=== PATIENT | female | born 1970 | race African-American/Black ===

== ENCOUNTER 2017-10-16 18:04 | Emergency (ER) | payer MEDICARE ==
[~2017-10-16] VITALS: Ht 162.6 cm; Wt 78.0 kg
[2017-10-16 18:09] VITALS: BP 130/58; PULSE 89; RESP 16; TEMP 98.8; O2SAT 100
[2017-10-16] MEDS ORDERED: NEUR100C PO (18:41)
[2017-10-16] MEDS ORDERED: NOVOINJ3 SQ (18:41)
[2017-10-16] MEDS ORDERED: PLAV75TA29 PO (18:41)
[2017-10-16] MEDS ORDERED: LEVEMIR SQ (18:41)
[2017-10-16] MEDS ORDERED: ASPI1TAB57 PO (18:41)
[2017-10-16] MEDS ORDERED: [UNRECOGNIZED DRUG - REMARK] (18:41)
--- NOTE | 2017-10-16 18:53 | PD ---
HPI Chief Complaint: Injury Time Seen by Provider: 18:31 Travel History International Travel<30 days: No Contact w/Intl Traveler<30days: No Traveled to known affect area: No History of Present Illness HPI 47-year-old female presents to the ED for evaluation of injury to her left hip. Per patient she accidentally had a trip and fall. 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 She is also a kidney transplant patient. She states that she landed on her left hip joint and also her left hand but she is not really concerned about anything else alert in the hip. She does have a big area of swelling. Per patient's abnormal 1:00. She has 92 morphine. She denies any urinary or bowel movement issues. She denies any head injury loss of consciousness. No neck pain or back pain. She states that she does take a blood thinner. No pain on the abdomen or chest. PFSH Past Medical History High Cholesterol: Yes Diabetes: Yes Patient Takes Glucophage: No Diminished Hearing: No Hypertension: Yes Medical other: Yes (neuropathy) Migraines: Yes Tetanus Vaccination: < 5 Years Influenza Vaccination: Yes ?: Not Past Surgical History Abdominal Surgery: Yes (bilat kidney transplant ) Cholecystectomy: Yes Hysterectomy: Yes (partial ) Other Surgery: Yes (bilat arms and chest ) Social History Alcohol Use: Yes (occassionally) Tobacco Use: No Substance Use: No Allergies-Medications (Allergen,Severity, Reaction): Coded Allergies: morphine (Verified Allergy, Unknown, 10/16/17) Reported Meds & Prescriptions Reported Meds & Active Scripts Active Reported Aspirin 81 (Aspirin) 81 Mg Tabdr 81 Mg PO DAILY Novolog Flexpen Inj (Insulin Aspart) 300 Unit/3 Ml Pen 2 Units SQ DIRECTED Levemir Inj (Insulin Detemir) 1,000 unit/ 10 ML Vial 35 Units SQ BID Do not mix with any other Insulin. Neurontin (Gabapentin) 100 Mg Cap 100 Mg PO TID Plavix (Clopidogrel Bisulfate) 75 Mg Tab 75 Mg PO DAILY [post transplant meds] Review of Systems Except as stated in HPI: all other systems reviewed are Neg Physical Exam Narrative GENERAL: SKIN: Warm and dry. Patient has multiple surgical scars from fistulous as well as previous surgeries. HEAD: Atraumatic. Normocephalic. EYES: Pupils equal and round. No scleral icterus. No injection or drainage. ENT: No nasal bleeding or discharge. Mucous membranes pink and moist. Tongue is midline. No uvula deviation. NECK: Trachea midline. No JVD. CARDIOVASCULAR: Regular rate and rhythm. No murmurs, S3, S4. RESPIRATORY: No accessory muscle use. Clear to auscultation. Breath sounds equal bilaterally. GASTROINTESTINAL: Abdomen soft, non-tender, nondistended. Hepatic and splenic margins not palpable. MUSCULOSKELETAL: Extremities without clubbing, cyanosis, or edema. No obvious deformities. Full range of motion of the upper and lower extremities bilaterally. 2+ pulses bilaterally. Patient able to move the hip completely. She has point tenderness to palpation on the lateral aspect of the hip around the area of the bursa. She does have swelling but no obvious bruising noted. Very tender to touch in this area. No lumbar, thoracic, cervical spine tenderness to palpation. Patient has below the knee amputation on the left leg. NEUROLOGICAL: Awake and alert. No obvious cranial nerve deficits. Motor grossly within normal limits. Five out of 5 muscle strength in the arms and legs. Normal speech. PSYCHIATRIC: Appropriate mood and affect; insight and judgment normal. Data Data Last Documented VS Vital Signs Date Time Temp Pulse Resp B/P (MAP) Pulse Ox O2 Delivery O2 Flow Rate FiO2 10/16/17 18:09 98.8 89 16 130/58 (82) 100 Orders Orders Femur (Ap & Lat/2vws) (10/16/17 ) Ct Temporal Bone W/O Iv Cont (10/16/17 ) MDM Medical Decision Making Medical Screen Exam Complete: Yes Emergency Medical Condition: Yes Medical Record Reviewed: Yes Interpretation(s) X-ray left hip show no sign of bony injury. Differential Diagnosis Fracture versus traumatic bursitis versus contusion versus hematoma Narrative Course 47-year-old female that presents to the ED for evaluation of left hip injury. Patient was properly examined and was found to have signs and symptoms concerning for bony injury. X-ray was done and was negative for acute bony injury. Patient does appear to have a traumatic bursitis. This time a recommend trial of pain medication. Ice or warm compresses. Because of her history of kidney disease I do not recommend NSAIDS. Patient was told to apply warm compresses. Follow with orthopedic doctor. See ED if worsening symptoms. Diagnosis Primary Impression: Traumatic bursitis Patient Instructions: General Instructions Additional Instructions: Take medications as prescribed. Follow-up with PCP. See ED for any worsening symptoms. Do not drink or drive while taking pain medication. Apply ice or heat as needed for pain Med/Other Pt SpecificInfo: Prescription(s) given Disposition: 01 DISCHARGE HOME Condition: Jerry Lopez Oct 16, 2017 18:53
[2017-10-16] MEDS ORDERED: HYDR-3516 PO (18:58)
--- NOTE | 2017-10-16 19:19 | RADRPT ---
EXAM DATE/TIME: 10/16/2017 18:54 [facility] COMPARISON: No previous studies available for comparison. INDICATIONS : Left femur pain post fall today MEDICAL HISTORY : None. SURGICAL HISTORY : None. ENCOUNTER: Initial ACUITY: 1 day PAIN SCORE: 5/10 LOCATION: Left entire femur FINDINGS: Two view examination of the left femur demonstrates no evidence of fracture or dislocation. Bony min eralization is normal. The soft tissue structures are intact. Vascular calcifications are seen. CONCLUSION: No acute disease. Scottie Murphy MD on October 16, 2017 at 19:16 Board Certified Radiologist. This report was verified electronically.
== END 2017-10-16 20:24 | disposition home or self-care (01) ==
LOC: PHEFT 18:04
DX: M70.72 Other bursitis of hip, left hip (principal); E78.00 Pure hypercholesterolemia, unspecified; E11.40 Type 2 diabetes mellitus with diabetic neuropathy, unspecified; I10 Essential (primary) hypertension; Z79.4 Long term (current) use of insulin; Z79.899 Other long term (current) drug therapy; Z79.02 Long term (current) use of antithrombotics/antiplatelets; Z94.0 Kidney transplant status; Z89.512 Acquired absence of left leg below knee
CPT/HCPCS: 73552; 99283